=== PATIENT | female | born 1990 | race Caucasian/White ===

== ENCOUNTER 2017-12-19 16:20 | Outpatient (CLI) | payer MEDICAID, SELFPAY ==
[2017-12-19 16:27] VITALS: BMI 26.3
[2017-12-19 16:49] VITALS: BP 119/67; PULSE 76; RESP 20; TEMP 36.5; O2SAT 98
== END 2017-12-19 16:45 | disposition home or self-care (01) ==
PROVIDERS: PCP Emergency Medicine; Visit Provider Emergency Medicine
DX: M79.602 Pain in left arm (principal)
CPT/HCPCS: 96372

== ENCOUNTER → 2018-10-26 13:05 | Outpatient (CLI) | payer MEDICAID, SELFPAY ==
--- NOTE | 2018-10-26 13:06 | US_ITS ---
US transvaginal Ordering Physician: Neo Obregon MD Patient Age: 28 years: Female HISTORY: ITS.REASON: PELVIC PAIN history of last ectopic but ovaries remains Recent diagnosis of cervical cancer TECHNIQUE: Transvaginal pelvic ultrasound COMPARISON :09/03/2018 FINDINGS Uterus. Retroverted.. Endometrium measures moderate/but normal thickness up to 9 mm AP most evident towards fundus of uterus... Only Question trace fluid in canal just above cervix at lower uterus . Retroverted Uterus measures 7 cm length x 5.5 cm wide x 4 cm AP. . The cervix itself is unremarkable with relatively smooth homogeneous appearance Ovaries are normal in size bilaterally with adequate color Doppler flow. Numerous small follicles of both ovaries. right ovary measures 3 cm x 1.7 x 2.25 cm. The largest follicular cyst at the right ovary measuring up to 7 mm . ( The over 2 cm cyst seen on previous ultrasound from August no longer evident) Left ovary measures 3 cm x 2.2 x 2 cm. Numerous Small follicles none measuring largest measuring just less than 8 mm x 4 mm. . Free fluid in cul-de-sac again noted. Minimal but slightly more appearance than previous study IMPRESSION: . Normal size Retroverted uterus. With Moderate endometrial stripe. Mild/moderate free fluid at cul-de-sac noted Ovaries appear normal in size with numerous small follicular cyst. -None measuring over 7-8 mm today (previous 2 cm cyst right ovary no longer evident and (
== END ==
PROVIDERS: PCP Physician Assistant; Visit Provider Obstetrics & Gynecology
DX: R10.2 Pelvic and perineal pain (principal)
CPT/HCPCS: 76830

== ENCOUNTER → 2018-10-31 11:17 | Outpatient (CLI) | payer MEDICAID, SELFPAY ==
[2018-10-31 11:59] LABS: Urine Pregnancy, HCG Qual. Negative (Negative)
[2018-10-31 12:31] LABS: Alanine Aminotransferase 18 U/L (12-78); Albumin Level 3.7 gm/dL (3.4-5.0); Albumin/Globulin Ratio 1.1 (1.1-1.8); Alkaline Phosphatase 53 U/L (46-116); Anion Gap 11.8 mEq/L (5-15); Aspartate Amino Transferase 11 U/L (15-37); Bilirubin,Total 0.6 mg/dL (0.2-1.0); Blood Urea Nitrogen 8 mg/dL (7-18); Calcium 8.6 mg/dL (8.5-10.1); Carbon Dioxide 27 mmol/L (21.0-32.0); Chloride 105 mmol/L (98-107); Creatinine,Serum 0.76 mg/dL (0.55-1.02); Estimated Glomerular Filt Rate 92 ml/min (>60); GFR (African American) 111 ML/MIN (>60); Globulin 3.4 gm/dl (1.3-3.2); Glucose 82 mg/dL (74-106); Potassium 3.8 mmoL/L (3.5-5.1); Sodium 140 mmol/L (136-145); Total Protein,Serum 7.1 gm/dL (6.4-8.2)
== END ==
PROVIDERS: Visit Provider Obstetrics & Gynecology
DX: Z01.818 Encounter for other preprocedural examination (principal); R10.2 Pelvic and perineal pain; N87.9 Dysplasia of cervix uteri, unspecified
CPT/HCPCS: 36415; 80053; 81025; 93005

== ENCOUNTER 2018-11-14 18:24 | Observation (INO) ==
[2018-11-14 19:22] LABS: Basophils # 0.1 K/mm3 (0-0.2); Basophils % 0.6 % (0.1-2.0); Eosinophils # 0.2 K/mm3 (0.0-0.4); Eosinophils % 2.1 % (0.1-12.0); Hematocrit 29.5 % (37.0-47.0); Hemoglobin 9.3 g/dL (12.2-16.2); Lymphocytes # 1.6 K/mm3 (0.7-4.5); Lymphocytes % 21.1 % (10-50); Mean Corpuscular HGB Conc 31.4 g/dL (31.8-35.4); Mean Corpuscular Hemoglobin 30.7 pg (27.0-31.2); Mean Corpuscular Volume 97.9 fl (81-99); Monocytes # 0.5 K/mm3 (0.1-1.0); Monocytes % 6.6 % (1.7-9.3); Neutrophils # 5.1 K/mm3 (1.8-7.8); Neutrophils % 69.6 % (37.0-80.0); Platelet Count 365 K/mm3 (142-424); Red Blood Count 3.02 M/mm3 (4.20-5.40); Red Cell Distribution Width 14.1 % (11.5-17.5); White Blood Count 7.4 K/mm3 (4.8-10.8)
[2018-11-14 19:35] LABS: Albumin Level 3.2 gm/dL (3.4-5.0); Albumin/Globulin Ratio 0.8 (1.1-1.8); Anion Gap 10.4 mEq/L (5-15); Bilirubin,Total 1.1 mg/dL (0.2-1.0); Calcium 8.4 mg/dL (8.5-10.1); Potassium 3.4 mmoL/L (3.5-5.1); Total Protein,Serum 7.2 gm/dL (6.4-8.2)
--- NOTE | 2018-11-14 20:55 | Emergency Department Note ---
ED Disposition Clinical Impression: Post-operative pain, Hemoperitoneum Disposition: Admitted as Observation Condition on Discharge: Serious Referrals: Litzy Butler PA [Primary Care Provider] - - Critical Care Critical Care Time: No Attestation: On 11/14/18, the high probability of a clinically significant, sudden or life threatening deterioration of the following system(s) required my full and direct attention, intervention and personal management. The time I documented below is in addition to time spent performing reported procedures but includes the following listed in this critical care notation. Medical Decision Making - Medical Records Medical records reviewed: Yes: I reviewed the patient's medical records. - Shady Inquiry Pt receiving controlled substance: No Vital Signs: 11/14/18 18:37 11/14/18 19:01 11/14/18 20:00 Temperature 98.2 F 98.8 F Temperature Source Oral Oral Pulse Rate [Right Brachial] 98 H 86 94 H Respiratory Rate 17 18 18 Blood Pressure [Right Arm] 130/77 137/68 147/95 H Blood Pressure Mean [Right Arm] 94 91 112 Blood Pressure Source [Right Arm] Automatic Cuff Automatic Cuff Automatic Cuff Blood Pressure Position [Right Arm] Sitting Sitting Supine 02 Sat by Pulse Oximetry 99 99 100 Oxygen Delivery Method Room Air Room Air Room Air 11/14/18 20:30 11/14/18 22:00 Temperature 98.4 F Temperature Source Oral Pulse Rate [Right Brachial] 91 H 97 H Respiratory Rate 18 20 Blood Pressure [Right Arm] 142/94 H 123/68 Blood Pressure Mean [Right Arm] 110 86 Blood Pressure Source [Right Arm] Automatic Cuff Blood Pressure Position [Right Arm] Supine 02 Sat by Pulse Oximetry 100 100 Oxygen Delivery Method Room Air - Lab Data Lab results reviewed: Yes: I reviewed the patient's lab results. Lab Results 11/14/18 19:10: WBC 7.4, RBC 3.02 L, Hgb 9.3 L, Hct 29.5 L, MCV 97.9, MCH 30.7, MCHC 31.4 L, RDW 14.1, Plt Count 365, MPV 9.0, Neut % (Auto) 69.6, Lymph % (Auto) 21.1, [place] % (Auto) 6.6, Eos % (Auto) 2.1, Baso % (Auto) 0.6, Neut # (Auto) 5.1, Lymph # (Auto) 1.6, [place] # (Auto) 0.5, Eos # (Auto) 0.2, Baso # (Auto) 0.1 11/14/18 19:10: Sodium 141, Potassium 3.4 L, Chloride 104, Carbon Dioxide 30, Anion Gap 10.4, BUN 10, Creatinine 0.56, Estimated Creat Clear 164, Estimated GFR 131, Est GFR ( Amer) 158, Glucose 92, Calcium 8.4 L, Total Bilirubin 1.1 H, AST 35, ALT 16, Alkaline Phosphatase 53, Total Protein 7.2, Albumin 3.2 L , Globulin 4.0 H, Albumin/Globulin Ratio 0.8 L, Amylase 70, Lipase 183 11/14/18 21:24: Blood Type O Positive, Antibody Screen Negative, Crossmatch (AHG) See Detail 11/14/18 21:28: Urine Color Yellow, Urine Appearance Clear, Urine pH 7.0, Ur Specific [place] 1.010, Urine Protein Negative, Urine Glucose (UA) Negative, Urine Ketones Negative, Urine Blood 1+, Urine Nitrate Negative, Urine Bilirubin Negative, Urine Urobilinogen 0.2, Ur Leukocyte Esterase Negative, Urine RBC 5- 10, Urine WBC 3-5, Ur Squamous Epith Cells 5-10, Urine Bacteria 1+ 11/14/18 22:55: Hgb 8.9 L, Hct 28.5 L Result diagrams: 11/14/18 22:55 11/14/18 19:10 Orders (Tests/Meds): ED MEDICATIONS Generic Name Dose Route Start Last Admin Trade Name Freq PRN Reason Stop Dose Admin Sodium Chloride 1,000 mls @ 999 mls/hr 11/14/18 19:00 11/14/18 19:07 Sod Chlor 0.9% 1000ml Bag IV 11/14/18 20:00 999 mls/hr .Q1H1M ADA Administration Sodium Chloride 250 mls @ 25 mls/hr 11/14/18 21:15 11/14/18 22:32 Sod Chlor 0.9% 250ml Bag IV 11/15/18 21:14 Not Given .Q10H ADA Sodium Chloride 1,000 mls @ 999 mls/hr 11/14/18 21:15 11/14/18 21:15 Sod Chlor 0.9% 1000ml Bag IV 11/14/18 22:15 999 mls/hr .Q1H1M ADA Administration Sodium Chloride 10 ml 11/14/18 18:52 Saline Flush 10ml Syringe IV 12/14/18 18:51 NEEDED PRN Maintain IV Site Discontinued Medications Generic Name Dose Route Start Last Admin Trade Name Rashid PRN Reason Stop Dose Admin Iopamidol 75 ml 11/14/18 20:18 11/14/18 20:19 [id number]; 75ml Vial IV 11/14/18 20:19 75 ml ONCE ONE Administration Protocol Morphine Sulfate 4 mg 11/14/18 18:56 11/14/18 19:07 Morphine 4mg/Ml Syringe IV 11/14/18 18:57 4 mg ONCE ONE Administration Ondansetron HCl 4 mg 11/14/18 18:56 11/14/18 19:07 Zofran 4mg/2ml Vial IV 11/14/18 18:57 4 mg ONCE ONE Administration Sodium Chloride 10 ml 11/14/18 20:18 11/14/18 20:19 Rad-Saline Flush 10ml Syringe IV 11/14/18 20:19 10 ml ONCE ONE Administration ORDERS Category Date Time Status PRBC [Red Blood Cells] Stat BBK 11/14/18 21:24 Results Type and Screen Stat BBK 11/14/18 21:[address] abdomen pelvis w con Stat Cat Scan 11/14/18 18:49 Taken Urinalysis and Microscopic Stat Lab 11/14/18 21:28 Ordered - CT Data CT Scan: Abdomen, Pelvis Time Received: 21:[address] Reviewed: Yes: I have viewed the radiologist's interpretation Preliminary Findings: Abnormal (see report ) - Physician Consults Physician Consulted: nafisa Reason -: Admission, Pt condition General Adult HPI - General Chief complaint: PAIN Stated complaint: Surgery 11/06/18 Pain, swelling, skin discolorati Time Seen by Provider: 11/14/18 20:15 Mode of Arrival: Ambulatory Source of Information: Patient, Significant Other, Medical Record Limitations: No Limitations Description of Symptoms (Recalled from ER Triage Doc. by RN): swelling, pain for a couple days; procedures noted to have been completed by dr syed on the - History of Present Illness HPI narrative: pt with recent brief writer surg 11/06/18 - has been doing ok but over the last few days has sense of fever and chills - and has abd swelling and tenderness in lt flank and lower abd - no vomiting -no syncope reported Onset (ago): day(s) Location: abdomen, pelvis, left Radiation: flank Severity: moderate Associated symptoms: denies other symptoms Treatments prior to arrival: none - Related Data Home Medications Medication Instructions Recorded Confirmed alprazolam 0.5 mg tablet 0.5 mg PO TID tab 12/15/17 11/03/18 Chlorhexidine Gluconate 1 applic TOPICAL Q5M 11/03/18 11/03/18 Nitrofurantoin Monohyd/M-Cryst 100 mg PO Q12 11/03/18 11/03/18 [Macrobid 100 mg Capsule] Norgestimate-Ethinyl Estradiol 1 tab PO DAILY 11/03/18 11/03/18 [Previfem Tablet] Previous Rx's Medication Instructions Recorded Indomethacin [Indocin] 25 mg PO Q8HP PRN #12 oral.susp 09/03/18 Allergies Allergy/AdvReac Type Severity Reaction Status Date / Time aripiprazole [From ABILIFY] Allergy Mild Verified 10/31/18 10:36 latex [LATEX] Allergy Mild Verified 10/31/18 10:36 Penicillins [PENICILLINS] Allergy Mild Verified 10/31/18 10:36 promethazine [From PHENERGAN] Allergy Mild Verified 10/31/18 10:36 BEE,BUMBLE Allergy Unknown Uncoded 10/31/18 10:36 Onion Allergy Unknown ORAL Uncoded 10/31/18 10:36 SWELLING TOMATOES (FOOD) Allergy Unknown I-RASH Uncoded 10/31/18 10:36 [facility] History - Hepatitis A Screen Drug use history?: No High risk sexual behaviors?: No History of sexually transmitted infection?: No Currently employed?: No Childcare worker?: No Do you have indoor plumbing?: Yes Do you have electricity?: Yes Attestation statement:: This patient has been screened for Hepatitis A risk factors. I have reviewed the patient's past medical history: Yes Medical History: Reports:: Anxiety, Kidney Stones Denies:: Cancer, Diabetes Mellitus Type 1, Diabetes Mellitus Type 2, Internal Pacemaker, MRSA, Seizures Other Medical History: Denies: Blood Transfusion Reaction Comment: bipolar. depression. anxiety Other Surgeries: Yes: Other. No: Pacemaker Amputation: No Fractures: No Comment: Bladder stretched--2012. Bladder stones removed x3--2012. 02/2018--- Left Tube Removed, Ectopic per [facility] - Social History Educational Level: Completed High School Smoking Status: Never smoker Tobacco Type: cigarettes # Packs/Day (cigarettes): 1 Alcohol Intake: never Alcohol Intake Frequency:: other Substance Use Type: denies use Occupational Status: employed Housing: house Household Members: children - Psychiatric History Expresses thoughts of harming self/others: None Suicide Plan Description: No Plan Pschychiatric History:: Reports:: Anxiety Family Hx:: Diabetes Comment: #1 2009, , male, No complications, breast. #2 2012, spontaneous , no D&E. #3 2014, , Male, no complications, bottle, 8lb. 3oz., 20" long. #4 02/2018, ECTOPIC, LEFT TUBE REMOVED PER [facility]. #5 08/17/2018, ECTOPIC?? ROS Obtained: Yes All systems reviewed & no additional complaints - Constitutional Constitutional: Reports as per HPI, Reports fever(s) - Eyes Eyes: Denies change in vision - ENT Ears, Nose, Mouth, and Throat: Denies sore throat - Cardiovascular Cardiovascular: Denies chest pain - Respiratory Respiratory: No cough - Gastrointestinal Gastrointestingal: Reports: abdominal pain, nausea, vomiting. Denies: diarrhea - Genitourinary Female Genitourinary: Denies abnormal vaginal bleeding, Reports flank pain - Musculoskeletal Musculoskeletal: Reports as per HPI, Denies joint pain, Denies joint swelling - Integumentary/Breasts Skin/Breast: Denies rash - Neurologic Neurologic: Denies headache(s), Denies seizure-like activity Physical Exam - General General appearance: alert, in no apparent distress - Head Head exam: normocephalic - Eye Eye exam: Present: PERRL, EOMI - ENT ENT exam: Present: mucous membranes moist - Neck Neck exam: Present: trachea midline - Respiratory Respiratory exam: Absent: respiratory distress - Cardiovascular Cardiovascular exam: Present: regular rate - Abdominal Exam Abdominal exam: Present: soft, tenderness Abdominal tenderness: Present: LLQ, moderate - Extremities Exam Extremities exam: Present: full ROM - Neurological Exam Neurological exam: Present: alert, oriented X3, CN II-XII intact - Psychiatric Psychiatric exam: Present: normal affect - Skin Skin exam: Absent: rash
[2018-11-14 21:42] LABS: Microscopic, Urine URINE MICROSCOPIC (MICROSCOPIC)
[2018-11-14 21:47] LABS: Appearance,Urine CLEAR (Clear); Bilirubin,Urine Negative (Negative); Blood, Urine 1+ (Negative); Color,Urine YELLOW (Yellow); Glucose,Urine (UA) Negative (Negative); Ketones,Urine Negative (Negative); Leukocyte Esterase,Urine Negative (Negative); Protein,Urine Negative (Negative); Urobilinogen,Urine 0.2 EU/dl (0.2)
[2018-11-14 21:57] LABS: Bacteria,Urine 1+ /lpf
[2018-11-14 23:03] LABS: Hematocrit 28.5 % (37.0-47.0); Hemoglobin 8.9 g/dL (12.2-16.2)
[2018-11-15 03:42] LABS: Hematocrit 26.6 % (37.0-47.0); Hemoglobin 8.2 g/dL (12.2-16.2)
[2018-11-15 06:03] LABS: Basophils % 0.6 % (0.1-2.0); Eosinophils # 0.2 K/mm3 (0.0-0.4); Eosinophils % 2.7 % (0.1-12.0); Hematocrit 28.1 % (37.0-47.0); Hemoglobin 8.8 g/dL (12.2-16.2); Lymphocytes # 1.7 K/mm3 (0.7-4.5); Lymphocytes % 27.8 % (10-50); Mean Corpuscular HGB Conc 31.2 g/dL (31.8-35.4); Mean Corpuscular Hemoglobin 30.8 pg (27.0-31.2); Mean Corpuscular Volume 98.7 fl (81-99); Mean Platelet Volume 9.2 fl (7.4-10.4); Monocytes # 0.5 K/mm3 (0.1-1.0); Monocytes % 8.2 % (1.7-9.3); Neutrophils # 3.6 K/mm3 (1.8-7.8); Neutrophils % 60.7 % (37.0-80.0); Platelet Count 307 K/mm3 (142-424); Red Blood Count 2.85 M/mm3 (4.20-5.40)
[2018-11-15 06:09] LABS: Anion Gap 9.6 mEq/L (5-15)
[2018-11-15 06:11] LABS: Potassium 3.6 mmoL/L (3.5-5.1)
--- NOTE | 2018-11-15 11:10 | Pharmacy Consult Notes ---
[facility] Pharmacy VTE Monitoring - Patient Demographics Admission date: 11/14/18 Report Date: 11/15/18 Time: 11:10 Allergies/Adverse Reactions: Patient Allergies aripiprazole [From ABILIFY] Allergy (Mild, Verified 10/31/18 10:36) latex [LATEX] Allergy (Mild, Verified 10/31/18 10:36) Penicillins [PENICILLINS] Allergy (Mild, Verified 10/31/18 10:36) promethazine [From PHENERGAN] Allergy (Mild, Verified 10/31/18 10:36) BEE,BUMBLE Allergy (Unknown, Uncoded 10/31/18 10:36) Onion Allergy (Unknown, Uncoded 10/31/18 10:36) ORAL SWELLING TOMATOES (FOOD) Allergy (Unknown, Uncoded 10/31/18 10:36) I-RASH Height: 1.57 m Weight: 68.152 kg Patient Problems: Current Active Problems Post-operative pain (Acute) Hemoperitoneum (Acute) - VTE Risk Labs: VTE Related Lab Results Hgb 8.8 g/dL (12.2-16.2) L 11/15/18 05:55 Hct 28.1 % (37.0-47.0) L 11/15/18 05:55 Plt Count 307 K/mm3 (142-424) 11/15/18 05:55 BUN 6 mg/dL (7-18) L D 11/15/18 05:55 Creatinine 0.49 mg/dL (0.55-1.02) L 11/15/18 05:55 Estimated Creat Clear 187 mL/min (50-200) 11/15/18 05:55 Was VTE Risk Assessment Performed: Yes VTE Score: 1 VTE Risk Level: Very Low Risk - Prophylaxis VTE Prophylaxis Ordered?: Yes Types of VTE Prophylaxis: TEDS Knee High Location of Applied Device: Bilateral Lower Extremeties - VTE Diagnosis Confirmed Treatment or plan recommended: Continue Current Treatment
--- NOTE | 2018-11-15 14:53 | History & Physical Report ---
OB - H&P: HPI Antepartum - History of Present Illness Chief complaint: abdominal pain History of present illness: 28 yo female POD #8 following Dx L/S with left Oophorectomy, fulguration of right fallopian tube, and cervical conization on 11/06/18 presented to the ED on the evening of 11/14/18 with complaints of abdominal pain and weakness. She was discharged home same day as surgical procedures, which were performed as outpatient, and has not had f/u appointment with Dr. Obregon yet. She reports that she had increasing pain, nausea and vomiting over the 5-6 days immediately following her surgery, and that she could not even get out of bed. 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 Cotto to come to hospital for evaluation, but was hoping she could "tough it out." She reports that symptoms finally started to improve on 11/13/18, and that she was able to get out of bed and do some holiday related activities with family, but had return to increased pain on 11/14 and presented to the ED that evening. She denies any significant vaginal bleeding following the cone procedure, and denies any purulent discharge from vagina or abdominal incisions. She noted low grade temp of 100.0 at home on 11/14 but was afebrile upon presentation to ED. She had run out of Rx Lortab approximately POD #4, and reports taking Ibuprofen 1000-1200mg po q 6 hours for past 2-3 days. Abdominal pain is described as lower abd/pelvis, inferior to umbilicus, but she also reports pain in left flank and LUQ. She has a history of numerous kidney stones and multiple lithotripsy procedures. She also had ectopic managed with left salpingectomy in 02/2018 at an outside facility. 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 Upon presentation to ED, she had concerning abdominal tenderness and CT was performed. Preliminary results (verbal reading) of CT reported hemoperitoneum which was not quantified or measured, but disclosed that extravasation or active bleeding could not be excluded. Initial Hgb was 9.3, which was a decrease from 12 on the day of her procedure, but vitals were stable. I evaluated her in the ED and found abdomen tender to palpation but no rebound or peritoneal signs. She was resting comfortably in the bed and even moving around and stretching over the edge of the bed as she handled the care of her toddler, without any apparent pain from this activity or limitations. Because her clinical presentation was stable in comparison to the findings of her Hgb and CT scan, and it was not apparent if the hemoperitoneum in her pelvis was bleeding that occurred more immediately postop (as opposed to POD #8), and because the patient strongly wanted to avoid surgical evaluation, I agreed to admit her for observation with serial labs and close monitoring of vital signs and clinical status, with the plan to perform diagnostic laparoscopy if there was any indication of active internal bleeding. The second Hgb result, which was drawn 3 hours after the first lab draw, was stable at 8.0 (compared to 9.3 at presentation), which was appropriate for dilutional effect of the 1400cc IVF she had received during that time. She agreed to be admitted for observation, and requested something to eat. [facility] History I have reviewed the patient's past medical history: Yes Medical History: Reports:: Anxiety, Kidney Stones Denies:: Cancer, Diabetes Mellitus Type 1, Diabetes Mellitus Type 2, Internal Pacemaker, MRSA, Seizures Other Medical History: Denies: Blood Transfusion Reaction Other Surgeries: Yes: Tubal Ligation ((L) tube removal), Ureter Stent, Other. No: Pacemaker Amputation: No Fractures: No - *Social History Educational Level: Attended College Smoking Status: Current every day smoker Tobacco Type: cigarettes # Packs/Day (cigarettes): 1 Alcohol Intake: current Alcohol Intake Frequency:: holidays/special occasions only Substance Use Type: denies use Occupational Status: employed Housing: house Household Members: children - Psychiatric History Expresses thoughts of harming self/others: None Suicide Plan Description: No Plan Pschychiatric History:: Reports:: Anxiety *Family Hx:: Diabetes Review of Systems - Review of Systems CONSTITUTIONAL: + low grade temp 1 day ago HEENT: no oral lesions PULMONARY: no shortness of breath or difficulty breathing CV: no racing heart, palpitations or chest pain ABD: + abdominal pain, +N/V : no vaginal bleeding/discharge SKIN: no new rash or bleeding/drainage/induration/separation abdominal incisions EXT: no edema NEURO: no mental status changes PSYCH: + anxiety (current management TID xanax) - *Neurologic Denies headache(s), Denies seizure-like activity Meds Home Medications Medication Instructions Recorded Confirmed Type alprazolam 0.5 mg tablet 0.5 mg PO TIDP PRN tab 12/15/17 11/15/18 History Indomethacin [Indocin] 25 mg PO Q8HP PRN #12 oral.susp 09/03/18 11/15/18 Rx Norgestimate-Ethinyl Estradiol 1 tab PO DAILY 11/03/18 11/15/18 History [Previfem Tablet] Allergies Allergy/AdvReac Type Severity Reaction Status Date / Time aripiprazole [From ABILIFY] Allergy Mild Verified 10/31/18 10:36 latex [LATEX] Allergy Mild Verified 10/31/18 10:36 Penicillins [PENICILLINS] Allergy Mild Verified 10/31/18 10:36 promethazine [From PHENERGAN] Allergy Mild Verified 10/31/18 10:36 BEE,BUMBLE Allergy Unknown Uncoded 10/31/18 10:36 Onion Allergy Unknown ORAL Uncoded 10/31/18 10:36 SWELLING TOMATOES (FOOD) Allergy Unknown I-RASH Uncoded 10/31/18 10:36 OB - H&P: Exam - Physical Exam Vital signs: Temp Pulse Resp BP Pulse Ox 98.5 F 86 18 103/62 L 99 11/15/18 08:00 11/15/18 08:00 11/15/18 08:00 11/15/18 08:00 11/15/18 08:00 Narrative: CONSTITUTIONAL: no acute distress HEENT: mucous membranes moist PULMONARY: breathing unlabored without audible wheezes CV: no tachycardia or visible JVD; normal LE peripheral pulses ABD: soft, non-distended. + tenderness to palpation, left > right, but no guarding or rebound tenderness. No peritoneal signs with movement/stretching of abdominal wall. + bruising at incision sites. : deferred SKIN: + bruising at incision sites, but no active bleeding/drainage, no erythema or induration. Incisions intact with suture. EXT: no edema LEs NEURO: alert/oriented, no altered mental status PSYCH: appropriate mood and demeanor without visible anxiety/depression OB - Results - Labs Labs: Short CBC 11/14/18 11/14/18 11/15/18 Range/Units 19:10 22:55 03:30 WBC 7.4 (4.8-10.8) K/mm3 Hgb 9.3 L 8.9 L 8.2 L (12.2-16.2) g/dL Hct 29.5 L 28.5 L 26.6 L (37.0-47.0) % Plt Count 365 (142-424) K/mm3 11/15/18 Range/Units 05:55 WBC 6.0 (4.8-10.8) K/mm3 Hgb 8.8 L (12.2-16.2) g/dL Hct 28.1 L (37.0-47.0) % Plt Count 307 (142-424) K/mm3 BMP 11/14/18 11/15/18 19:10 05:55 Sodium 141 141 Potassium 3.4 L 3.6 Chloride 104 106 Carbon Dioxide 30 29 BUN 10 6 L D Creatinine 0.56 0.49 L Glucose 92 92 Calcium 8.4 L 8.0 L Liver Function 11/14/18 Range/Units 19:10 Total Bilirubin 1.1 H (0.2-1.0) mg/dL AST 35 (15-37) U/L ALT 16 (12-78) U/L Alkaline Phosphatase 53 (46-116) U/L Albumin 3.2 L (3.4-5.0) gm/dL Urine 11/14/18 Range/Units 21:28 Urine Color Yellow (Yellow) Urine Appearance Clear (Clear) Urine pH 7.0 (5.0-8.5) Ur Specific Melissa 1.010 (1.005-1.030) Urine Protein Negative (Negative) Urine Glucose (UA) Negative (Negative) OB - A/P Antepartum (1) Post-operative pain Current visit: Yes Status: Acute (2) Hemoperitoneum Current visit: Yes Status: Acute (3) Postoperative anemia due to acute blood loss Current visit: Yes Status: Acute (4) Bilateral nephrolithiasis Current visit: Yes Status: Acute (5) S/P unilateral salpingo-oophorectomy Problem details: Left Current visit: Yes Status: Acute (6) Anxiety Current visit: No Status: Chronic - Additional Plan Additional Information:: Admission for observation Postoperative intra-abdominal bleeding that appears stable at this time, with no suspicion for acute/active bleeding currently, based on labs, vital signs and physical exam. Serial labs over night Will discuss CT result with radiologist tomorrow to see if additional imaging warranted at this time patient desires to avoid further surgical management; will clarify size of hemoperitoneum with radiologist to ascertain whether it would be amenable to percutaneous drainage Continue home meds No indication for transfusion at this time, which patient also expresses desire to avoid Will supplement with FeSO4 Advised to avoid further NSAIDs and will manage pain with PRN tylenol and/or hydrocodone as needed Total time spent in [id number] evaluation/management at time of admission 95 minutes, with > 50% of time spent in counseling/coordination of care.
--- NOTE | 2018-11-15 15:47 | Discharge Summary ---
General - General Admission date:: 11/15/18 Discharge date: 11/15/18 HPI HPI: Admission POD #8 after l/s left oophorectomy and cervical cone due to abdominal pain, anemia and findings of hemoperitoneum. Initial assessment unclear if active bleeding vs clot after postop bleeding that occurred immediately following surgery, and clinical exam was stable, so she was admitted for observation and serial labs/vitals etc. Hgb remained stable and clinical exam also stable, c/w intra-abdominal bleeding that occurred immediately following surgery but had resolved/stablized by the time of presentation. Hgb 8.8 did not necessitate transfusion and patient expressed a refusal of blood products as well. Her CT findings were discussed at length with radiology on 11/15 and findings c/w those described above. Recommendation per radiologist that as long as clinical picture remains stable, repeat CT with contrast 1 week (11/20/18) to assess for any decrease in size of hemoperitoneum. If size does not decrease, or patient shows any signs for secondary abscess within hemoperitoneum, possible peructaneous drainage could be achieved, but will need to discuss with radiology at that time depending on specific CT findings. She is requesting discharge and clinical exam is stable. She will need to coordinate with Dr. Obregon's office this week to schedule CT pelvis (with contrast) for 11/20/18. Hospital Course Hospital Course: as documented HPI Objective Vital signs: Temp Pulse Resp BP Pulse Ox 98.5 F 86 18 103/62 L 99 11/15/18 08:00 11/15/18 08:00 11/15/18 08:00 11/15/18 08:00 11/15/18 08:00 Narrative: CONSTITUTIONAL: no acute distress HEENT: mucous membranes moist PULMONARY: breathing unlabored without audible wheezes CV: no tachycardia or visible JVD; normal LE peripheral pulses ABD: soft/ND, + tender with palpation. no rebound/guarding SKIN: no visible rash; incisions intact without erythema/drainage. + bruising. EXT: no edema LEs NEURO: alert/oriented, no altered mental status PSYCH: appropriate mood and demeanor without visible anxiety/depression Results Labs on day of discharge: Labs from last 24 hours 11/15/18 11/15/18 11/15/18 05:55 05:55 03:30 WBC 6.0 RBC 2.85 L Hgb 8.8 L 8.2 L Hct 28.1 L 26.6 L MCV 98.7 MCH 30.8 MCHC 31.2 L RDW 14.0 Plt Count 307 MPV 9.2 Neut % (Auto) 60.7 Lymph % (Auto) 27.8 [place] % (Auto) 8.2 Eos % (Auto) 2.7 Baso % (Auto) 0.6 Neut # (Auto) 3.6 Lymph # (Auto) 1.7 [place] # (Auto) 0.5 Eos # (Auto) 0.2 Baso # (Auto) 0.0 Sodium 141 Potassium 3.6 Chloride 106 Carbon Dioxide 29 Anion Gap 9.6 BUN 6 L D Creatinine 0.49 L Estimated Creat Clear 187 Estimated GFR 153 Est GFR ( Amer) 185 Glucose 92 Calcium 8.0 L Total Bilirubin AST ALT Alkaline Phosphatase Total Protein Albumin Globulin Albumin/Globulin Ratio Amylase Lipase Urine Color Urine Appearance Urine pH Ur Specific [place] Urine Protein Urine Glucose (UA) Urine Ketones Urine Blood Urine Nitrate Urine Bilirubin Urine Urobilinogen Ur Leukocyte Esterase Urine RBC Urine WBC Ur Squamous Epith Cells Urine Bacteria Blood Type Antibody Screen Crossmatch ([facility]) 11/14/18 11/14/18 11/14/18 22:55 21:28 21:24 WBC RBC Hgb 8.9 L Hct 28.5 L MCV MCH MCHC RDW Plt Count MPV Neut % (Auto) Lymph % (Auto) [place] % (Auto) Eos % (Auto) Baso % (Auto) Neut # (Auto) Lymph # (Auto) [place] # (Auto) Eos # (Auto) Baso # (Auto) Sodium Potassium Chloride Carbon Dioxide Anion Gap BUN Creatinine Estimated Creat Clear Estimated GFR Est GFR ( Amer) Glucose Calcium Total Bilirubin AST ALT Alkaline Phosphatase Total Protein Albumin Globulin Albumin/Globulin Ratio Amylase Lipase Urine Color Yellow Urine Appearance Clear Urine pH 7.0 Ur Specific [place] 1.010 Urine Protein Negative Urine Glucose (UA) Negative Urine Ketones Negative Urine Blood 1+ Urine Nitrate Negative Urine Bilirubin Negative Urine Urobilinogen 0.2 Ur Leukocyte Esterase Negative Urine RBC 5-10 Urine WBC 3-5 Ur Squamous Epith Cells 5-10 Urine Bacteria 1+ Blood Type O Positive Antibody Screen Negative Crossmatch ([facility]) See Detail 11/14/18 11/14/18 19:10 19:10 WBC 7.4 RBC 3.02 L Hgb 9.3 L Hct 29.5 L MCV 97.9 MCH 30.7 MCHC 31.4 L RDW 14.1 Plt Count 365 MPV 9.0 Neut % (Auto) 69.6 Lymph % (Auto) 21.1 [place] % (Auto) 6.6 Eos % (Auto) 2.1 Baso % (Auto) 0.6 Neut # (Auto) 5.1 Lymph # (Auto) 1.6 [place] # (Auto) 0.5 Eos # (Auto) 0.2 Baso # (Auto) 0.1 Sodium 141 Potassium 3.4 L Chloride 104 Carbon Dioxide 30 Anion Gap 10.4 BUN 10 Creatinine 0.56 Estimated Creat Clear 164 Estimated GFR 131 Est GFR ( Amer) 158 Glucose 92 Calcium 8.4 L Total Bilirubin 1.1 H AST 35 ALT 16 Alkaline Phosphatase 53 Total Protein 7.2 Albumin 3.2 L Globulin 4.0 H Albumin/Globulin Ratio 0.8 L Amylase 70 Lipase 183 Urine Color Urine Appearance Urine pH Ur Specific [place] Urine Protein Urine Glucose (UA) Urine Ketones Urine Blood Urine Nitrate Urine Bilirubin Urine Urobilinogen Ur Leukocyte Esterase Urine RBC Urine WBC Ur Squamous Epith Cells Urine Bacteria Blood Type Antibody Screen Crossmatch ([facility]) DS: Diagnosis - Discharge Diagnosis (1) Post-operative pain Status: Acute (2) Hemoperitoneum Status: Acute (3) Postoperative anemia due to acute blood loss Status: Acute (4) Bilateral nephrolithiasis Status: Acute (5) S/P unilateral salpingo-oophorectomy Status: Acute Problem details: Left (6) Anxiety Status: Chronic Discharge Plan - Patient Discharge Instructions ACTIVITY: Continue current activity DIET: regular diet Additional Instructions: Call Dr. Obregon's office 11/16/[address] of pelvis on 11/20/18 Patient Instructions: Kidney Stones -- Adult, DI for Postoperative Pain - Follow up Plan Disposition: Home, Self-[facility]ci Medications: Home Medications Medication Instructions Recorded Confirmed Type alprazolam 0.5 mg tablet 0.5 mg PO TIDP PRN tab 12/15/17 11/15/18 History Indomethacin [Indocin] 25 mg PO Q8HP PRN #12 oral.susp 09/03/18 11/15/18 Rx Norgestimate-Ethinyl Estradiol 1 tab PO DAILY 11/03/18 11/15/18 History [Previfem Tablet] Hydrocodone/Acetaminophen [[place] 1 each PO Q6HP PRN #15 tab 11/15/18 Rx 5-325 Tablet] Prescriptions/Medication Reconciliation: New Hydrocodone/Acetaminophen [[place] 5-325 Tablet] 1 each PO Q6HP PRN #15 tab PRN Reason: Severe Pain Continue alprazolam 0.5 mg tablet 0.5 mg PO TIDP PRN tab PRN Reason: Anxiety Norgestimate-Ethinyl Estradiol [Previfem Tablet] 1 tab PO DAILY Discontinued Indomethacin [Indocin] 25 mg PO Q8HP PRN #12 oral.susp PRN Reason: Moderate To Severe Pain
== END 2018-11-15 16:08 | disposition home or self-care (01) ==
LOC: ER 18:24 → 2ND 23:13 → OB 23:51 → INTOOBSV 11-15 00:10 → OB 11-15 00:14
PROVIDERS: ADMIT Obstetrics & Gynecology; ATTEND Obstetrics & Gynecology
CPT/HCPCS: 36415; 74177; 80048; 80053; 81001; 82150; 83690; 85014; 85018; 85025; 86850; 96365; 96366; 96375; 99285; G0378; J2405; Q9967

== ENCOUNTER → 2018-11-23 09:31 | Outpatient (CLI) | payer MEDICAID, SELFPAY ==
[2018-11-23 10:19] LABS: Basophils # 0.1 K/mm3 (0-0.2); Basophils % 0.8 % (0.1-2.0); Eosinophils # 0.2 K/mm3 (0.0-0.4); Eosinophils % 2.4 % (0.1-12.0); Hematocrit 40.2 % (37.0-47.0); Hemoglobin 12.2 g/dL (12.2-16.2); Lymphocytes # 1.5 K/mm3 (0.7-4.5); Lymphocytes % 24.8 % (10-50); Mean Corpuscular HGB Conc 30.4 g/dL (31.8-35.4); Mean Corpuscular Hemoglobin 30.2 pg (27.0-31.2); Mean Corpuscular Volume 99.3 fl (81-99); Mean Platelet Volume 8.7 fl (7.4-10.4); Monocytes # 0.4 K/mm3 (0.1-1.0); Monocytes % 7.1 % (1.7-9.3); Neutrophils % 64.9 % (37.0-80.0); Platelet Count 368 K/mm3 (142-424); Red Blood Count 4.05 M/mm3 (4.20-5.40); Red Cell Distribution Width 13.9 % (11.5-17.5); White Blood Count 6.1 K/mm3 (4.8-10.8)
== END ==
PROVIDERS: Visit Provider Obstetrics & Gynecology
DX: Z48.89 Encounter for other specified surgical aftercare (principal)
CPT/HCPCS: 36415; 85025

== ENCOUNTER → 2019-02-19 17:39 | Outpatient (CLI) | payer MEDICAID, SELFPAY ==
[2019-02-19 18:33] LABS: Amphetamine/Metha Screen,Urine Negative ng/mL (<1000); Barbiturates Screen,Urine Negative ng/mL (<200); Benzodiazepines Screen,Urine Negative ng/mL (<200); Cannabinoid Screen,Urine Positive ng/mL (<50); Cocaine Screen,Urine Negative ng/mL (<300); Methadone Screen,Urine Negative ng/mL (<300); Opiate Screen,Urine Negative ng/mL (<300); Phencyclidine Screen,Urine Negative ng/mL (<25)
== END ==
PROVIDERS: Visit Provider Nurse Practitioner Family
DX: Z79.899 Other long term (current) drug therapy (principal); R82.998 Other abnormal findings in urine
CPT/HCPCS: 80305; 87086

== ENCOUNTER → 2019-04-05 17:47 | Outpatient (CLI) | payer MEDICAID, SELFPAY ==
[2019-04-05 18:33] LABS: Eosinophils # 0.1 K/mm3 (0.0-0.4); Eosinophils % 1.9 % (0.1-12.0); Hematocrit 43.5 % (37.0-47.0); Hemoglobin 14.2 g/dL (12.2-16.2); Lymphocytes # 1.4 K/mm3 (0.7-4.5); Mean Corpuscular HGB Conc 32.7 g/dL (31.8-35.4); Mean Corpuscular Hemoglobin 31.2 pg (27.0-31.2); Mean Corpuscular Volume 95.5 fl (81-99); Mean Platelet Volume 11.1 fl (7.4-10.4); Monocytes # 0.3 K/mm3 (0.1-1.0); Monocytes % 6.8 % (1.7-9.3); Neutrophils # 2.7 K/mm3 (1.8-7.8); Neutrophils % 59.3 % (37.0-80.0); Platelet Count 231 K/mm3 (142-424); Red Blood Count 4.55 M/mm3 (4.20-5.40); Red Cell Distribution Width 14.2 % (11.5-17.5); White Blood Count 4.5 K/mm3 (4.8-10.8)
[2019-04-05 19:01] LABS: Alanine Aminotransferase 21 U/L (12-78); Albumin Level 4.2 gm/dL (3.4-5.0); Albumin/Globulin Ratio 1.3 (1.1-1.8); Alkaline Phosphatase 46 U/L (46-116); Aspartate Amino Transferase 14 U/L (15-37); Bilirubin,Total 0.8 mg/dL (0.2-1.0); Blood Urea Nitrogen 7 mg/dL (7-18); Carbon Dioxide 26 mmol/L (21.0-32.0); Chloride 105 mmol/L (98-107); Chol/HDL Ratio 3.1 (1-3.5); Cholesterol 144 mg/dL (140-200); Creatinine,Serum 0.63 mg/dL (0.55-1.02); Estimated Glomerular Filt Rate 113 ml/min (>60); GFR (African American) 137 ML/MIN (>60); Globulin 3.3 gm/dl (1.3-3.2); Glucose 88 mg/dL (74-106); HDL Cholesterol 47 mg/dL (29-89); LDL Cholesterol 88 mg/dL (0-130); Sodium 141 mmol/L (136-145); T4 (Thyroxine) 5.8 ug/dl (4.7-13.3); Thyroid Stimulating Hormone 0.64 uIU/ml (0.358-3.740); Total Protein,Serum 7.5 gm/dL (6.4-8.2); Triglycerides 44 mg/dL (30-200); VLDL Cholesterol 9 mg/dL (0-40)
[2019-04-07 18:09] LABS: FSH 5.7 mIU/mL (.); LH 5.9 mIU/mL (.)
[2019-04-07 18:09] LABS: Vitamin B12 286 pg/mL (232-1245); Vitamin D 25 Hydroxy 29.4 ng/mL (30.0-100.0)
[2019-04-11 07:42] LABS: Estrogen 575 pg/mL (.)
== END ==
PROVIDERS: Visit Provider Physician Assistant
DX: F32.9 Major depressive disorder, single episode, unspecified (principal); F41.9 Anxiety disorder, unspecified; R53.83 Other fatigue
CPT/HCPCS: 80053; 80061; 82607; 82652; 82672; 82746; 83001; 83002; 84436; 84443; 85025

== ENCOUNTER → 2019-05-07 18:32 | Outpatient (CLI) | payer MEDICAID, SELFPAY | PROVIDERS: Visit Provider Physician Assistant | DX: N39.0 Urinary tract infection, site not specified (principal) | CPT/HCPCS: 87086; 87088; 87186 ==

== ENCOUNTER 2020-06-09 16:59 | Emergency (ER) | payer MEDICAID, SELFPAY ==
[2020-06-09 17:05] VITALS: BP 109/57; PULSE 82; RESP 18; TEMP 37; O2SAT 99; BMI 26.5
--- NOTE | 2020-06-09 17:17 | CT_ITS ---
PROCEDURE: CT ABDOMEN PELVIS WO CON CLINICAL INDICATION: right flank pain Right flank pain with nausea and vomiting COMPARISON: CT ABDOMEN PELVIS W CON from 07/30/2019 TECHNIQUE: Axial images obtained with sagittal and coronal reformats. All CT scans at the facility use one or more dose reduction, viz: automated exposure control, ma/kV adjustment per patient size (including targeted exams where dose is matched to indication, i.e. head), or iterative reconstruction technique. FINDINGS: LOWER THORAX: 5 mm nodular opacity is present in the right lung base possibly due to an area of atelectasis and may be confirmed with follow-up. ABDOMEN & PELVIS: The liver, spleen, adrenal glands, and pancreas have an unremarkable unenhanced appearance. There are numerous bilateral renal calculi measuring up to 8 mm in the lower pole on the right and 4 mm in the lower pole on the left. There is severe right hydronephrosis and hydroureter secondary to a 6 mm stone at the right ureterovesical junction. There is an additional calcific density in the right lower pelvic region at 3 mm and may be due to a additional ureteral stone proximal to the larger stone versus a phleboliths. No evidence of appendicitis diverticulitis or intestinal obstruction or free air. There is a mild amount of retained colonic feces. High-density material present in the left adnexal region possibly due to prior embolization. Small amount fluid is present in the pelvis on the right. The uterus is retroflexed. Bone island is present in the left is skin. No acute bony findings. IMPRESSION: Moderate to severe right hydronephrosis and hydroureter secondary to a 6 mm right ureterovesical junction stone. A 3 mm stone is suspected in the ureter proximal to the larger stone. Bilateral nephrolithiasis. Other nonacute findings as described above. Dictated by: Zain Read MD 06/10/2020 08:59 Electronically signed by Zain Read MD in [place] 06/10/2020 08:59
[2020-06-09 17:26] LABS: Chloride 104 mmol/L (98-107); Potassium 4.2 mmoL/L (3.5-5.1); Sodium 140 mmol/L (136-145)
[2020-06-09 17:27] LABS: Basophils # 0.1 K/mm3 (0-0.2); Basophils % 1.2 % (0.1-2.0); Eosinophils # 0.3 K/mm3 (0.0-0.4); Eosinophils % 4.6 % (0.1-12.0); Hemoglobin 12.8 g/dL (12.2-16.2); Lymphocytes # 2.1 K/mm3 (0.7-4.5); Mean Corpuscular HGB Conc 32.9 g/dL (31.8-35.4); Mean Corpuscular Hemoglobin 32.2 pg (27.0-31.2); Mean Corpuscular Volume 97.9 fl (81-99); Mean Platelet Volume 10.3 fl (7.4-10.4); Monocytes # 0.5 K/mm3 (0.1-1.0); Neutrophils # 3.5 K/mm3 (1.8-7.8); Neutrophils % 54.1 % (37.0-80.0); Platelet Count 226 K/mm3 (142-424); Red Blood Count 3.98 M/mm3 (4.20-5.40); Red Cell Distribution Width 12.6 % (11.5-17.5); White Blood Count 6.4 K/mm3 (4.8-10.8)
[2020-06-09 17:29] LABS: Alanine Aminotransferase 12 U/L (12-78); Albumin Level 4.2 g/dl (3.5-5.0); Albumin/Globulin Ratio 1.4 (1.1-1.8); Alkaline Phosphatase 46 U/L (38-126); Anion Gap 10.2 mEq/L (5-15); Aspartate Amino Transferase 24 U/L (14-36); Bilirubin,Total 0.3 mg/dl (0.2-1.3); Blood Urea Nitrogen 12 mg/dl (7-17); Carbon Dioxide 30 mmol/L (22.0-30.0); Creatinine Clearance Estimated 124 mL/min (50-200); Estimated Glomerular Filt Rate 100 ml/min (>60); GFR (African American) 121 ML/MIN (>60); Total Protein,Serum 7.2 g/dl (6.3-8.2)
[2020-06-09 17:30] LABS: Calcium 9.7 mg/dl (8.4-10.2); Glucose 93 mg/dl (74-100)
[2020-06-09 17:46] VITALS: BP 138/88; PULSE 69; RESP 18; O2SAT 97
[2020-06-09 18:24] LABS: Microscopic, Urine URINE MICROSCOPIC (MICROSCOPIC)
[2020-06-09 18:26] LABS: Appearance,Urine CLOUDY (Clear); Bilirubin,Urine Negative (Negative); Blood, Urine 1+ (Negative); Color,Urine YELLOW (Yellow); Glucose,Urine (UA) Negative (Negative); Ketones,Urine Negative (Negative); Leukocyte Esterase,Urine 2+ (Negative); Nitrate,Urine POSITIVE (Negative); Protein,Urine TRACE (Negative); Urobilinogen,Urine 0.2 EU/dl (0.2)
[2020-06-09 18:35] LABS: Amorphous Sediment,Urine 2+ /lpf; Bacteria,Urine 2+ /lpf; WBC,Urine 50-100 #/hpf (0-3)
[2020-06-09 18:57] VITALS: BP 119/59; PULSE 66
--- NOTE | 2020-06-09 18:59 | [facility].EDGENADL ---
ED Disposition Clinical Impression: Right flank pain, Nephrolithiasis Disposition: Home, Self-Care Condition on Discharge: Good Instructions: DI for Acute Pain -- Adult Referrals: PCP,No [Primary Care Provider] - Bird Johnson MD [Staff Physician] - (Please follow-up with Dr. Johnson tomorrow please) - Critical Care Critical Care Time: No Attestation: On 06/09/20, the high probability of a clinically significant, sudden or life threatening deterioration of the following system(s) required my full and direct attention, intervention and personal management. The time I documented below is in addition to time spent performing reported procedures but includes the following listed in this critical care notation. Medical Decision Making - Medical Records Medical records reviewed: Yes: I reviewed the patient's medical records. - Shady Inquiry Pt receiving controlled substance: No Vital Signs: 06/09/20 17:05 06/09/20 17:46 06/09/20 18:57 Temperature 98.6 F Temperature Source Oral Pulse Rate [Left Radial] 82 69 66 Respiratory Rate 18 18 Blood Pressure [Left Arm] 109/57 L 138/88 119/59 L Blood Pressure Mean [Left Arm] 74 104 79 Blood Pressure Source [Left Arm] Automatic Cuff Automatic Cuff Blood Pressure Position [Left Arm] Right Lateral Sitting Sitting 02 Sat by Pulse Oximetry 99 97 Oxygen Delivery Method Room Air - Lab Data Lab results reviewed: Yes: I reviewed the patient's lab results. Lab Results 06/09/20 17:10: WBC 6.4, RBC 3.98 L, Hgb 12.8, Hct 39.0, MCV 97.9, MCH 32.2 H, MCHC 32.9, RDW 12.6, Plt Count 226, MPV 10.3, Neut % (Auto) 54.1, Lymph % (Auto) 33.0, [place] % (Auto) 7.0, Eos % (Auto) 4.6, Baso % (Auto) 1.2, Neut # (Auto) 3.5, Lymph # (Auto) 2.1, [place] # (Auto) 0.5, Eos # (Auto) 0.3, Baso # (Auto) 0.1 06/09/20 17:10: Sodium 140, Potassium 4.2, Chloride 104, Carbon Dioxide 30, Anion Gap 10.2, BUN 12, Creatinine 0.70, Estimated Creat Clear 124, Estimated GFR 100, Est GFR ( Amer) 121, Glucose 93, Calcium 9.7, Total Bilirubin 0.3, AST 24, ALT 12, Alkaline Phosphatase 46, Total Protein 7.2, Albumin 4.2, Globulin 3.0, Albumin/Globulin Ratio 1.4 06/09/20 18:20: Urine Color Yellow, Urine Appearance Cloudy, Urine pH 7.0, Ur Specific [place] 1.020, Urine Protein Trace, Urine Glucose (UA) Negative, Urine Ketones Negative, Urine Blood 1+, Urine Nitrate Positive, Urine Bilirubin Negative, Urine Urobilinogen 0.2, Ur Leukocyte Esterase 2+ A, Urine RBC 3-5, Urine WBC 50-100, Ur Squamous Epith Cells 5-10, Amorphous Sediment 2+, Urine Bacteria 2+ Result diagrams: 06/09/20 17:10 06/09/20 17:10 Orders (Tests/Meds): ED MEDICATIONS Generic Name Dose Route Start Last Admin Trade Name Freq PRN Reason Stop Dose Admin Sodium Chloride 1,000 mls @ 999 mls/hr 06/09/20 17:15 06/09/20 17:22 Sod Chlor 0.9% 1000ml Bag IV 06/09/20 18:15 999 mls/hr .Q1H1M ADA Administration Tamsulosin HCl 0.8 mg 06/09/20 21:00 06/09/20 18:45 Flomax 0.4mg Capsule PO 07/09/20 20:59 0.8 mg HS ADA Administration Discontinued Medications Generic Name Dose Route Start Last Admin Trade Name Freq PRN Reason Stop Dose Admin Amlodipine Besylate 5 mg 06/09/20 18:41 06/09/20 18:45 Norvasc 5mg Tablet PO 06/09/20 18:42 5 mg ONCE ONE Administration Hydromorphone HCl 1 mg 06/09/20 18:41 06/09/20 18:45 Dilaudid 2mg/Ml Syringe IV 06/09/20 18:42 1 mg ONCE ONE Administration Ketorolac Tromethamine 30 mg 06/09/20 17:15 06/09/20 17:22 Toradol 30mg/Ml Vial IV 06/09/20 17:16 30 mg ONCE ONE Administration Morphine Sulfate 4 mg 06/09/20 17:34 06/09/20 17:35 Morphine 4mg/Ml Syringe IV 06/09/20 17:35 4 mg ONCE ONE Administration Ondansetron HCl 4 mg 06/09/20 17:15 06/09/20 17:22 Zofran 4mg/2ml Vial IV 06/09/20 17:16 4 mg ONCE ONE Administration ORDERS Category Date Time Status CT abdomen pelvis wo con Stat Cat Scan 06/09/20 17:17 Taken Urine Culture Stat
[2020-06-09 19:17] VITALS: BP 119/59; PULSE 68; RESP 16; TEMP 36.6; O2SAT 98
== END 2020-06-09 19:19 | disposition home or self-care (01) ==
PROVIDERS: Emergency Provider Family Medicine
DX: N20.0 Calculus of kidney (principal); Z87.442 Personal history of urinary calculi; F17.210 Nicotine dependence, cigarettes, uncomplicated; Z91.040 Latex allergy status; Z88.0 Allergy status to penicillin; F41.8 Other specified anxiety disorders
CPT/HCPCS: 74176; 80053; 81001; 85025; 87086; 87088; 87186; 96365; 96375; 99284; J2405

== ENCOUNTER → 2020-07-09 19:02 | Outpatient (CLI) | payer OTHER, SELFPAY | PROVIDERS: Visit Provider Nurse Practitioner Family | DX: N39.0 Urinary tract infection, site not specified (principal) | CPT/HCPCS: 87086; 87088; 87186 ==